=== PATIENT | female | born 1970 | race Caucasian/White ===

== ENCOUNTER → 2024-12-15 | Outpatient (CLI) | payer OTHER ==
[~2024-12-15] MED LIST: HYDHCL25 PO
[2024-12-15 12:06] LABS: Source, Urine Voided
[2024-12-15 13:52] LABS: Bilirubin, Urine Neg (Neg); Color, Urine Yellow (P-Yellow); Glucose Qualitative, Urine Neg (Neg); Ketones, Urine Neg (Neg); Leukocyte Esterase, Urine Neg (Neg); Protein, Urine 2+ (Neg); Specific Gravity, Urine 1.010 (1.003-1.022); Urobilinogen, Urine NORM (Normal)
[2024-12-15 16:13] LABS: Creatinine, Urine Random 35.5 mg/dL (27.00-270.00); Microalb/Creat Ratio UR, Rand 687.324 mg/g (0.000-30.000); Microalbumin, Random Urine 244.0 mg/L (0.000-20.000)
== END ==
LOC: LAB SHORT 10:49 → LAB 10:49
PROVIDERS: Internal Medicine
DX: M32.14 Glomerular disease in systemic lupus erythematosus (principal); I12.9 Hypertensive chronic kidney disease with stage 1 through stage 4 chronic kidney disease, or unspecified chronic kidney disease; N18.31 Chronic kidney disease, stage 3a; D84.9 Immunodeficiency, unspecified
CPT/HCPCS: 81001; 82043; 82570

== ENCOUNTER 2025-01-26 00:35 | Day surgery (SDC) | payer OTHER ==
[~2025-01-26] VITALS: Wt 67.4 kg
[2025-01-26 07:44] VITALS: BP 108/74
[2025-01-26] MEDS ORDERED: AMLO10 PO (07:48)
[2025-01-26] MEDS ORDERED: CARV6.25 PO (07:48)
[2025-01-26] MEDS ORDERED: THERA-D2000 UNIT PO (07:48)
[2025-01-26] MEDS ORDERED: CLOBETASOL EMOL15 G1 TOP (07:49)
[2025-01-26] MEDS ORDERED: HYDSUL200 PO (07:50)
[2025-01-26] MEDS ORDERED: CATAPRES0.2 M1 PO (07:50)
[2025-01-26] MEDS ORDERED: CATAPRES0.1 MG PO (07:50)
[2025-01-26] MEDS ORDERED: MYCO250 PO (07:52)
[2025-01-26] MEDS ORDERED: OLME5TAB PO (07:52)
[2025-01-26] MEDS ORDERED: Prednisone10 M1 PO (07:54)
[2025-01-26] MEDS ORDERED: VENL75ER PO (07:54)
--- NOTE | 2025-01-26 10:46 | NUR ---
PHARMACY ADVISED THAT THEY HAD INSUFFICIENT QUANTITY OF MEDICATION AVAILABLE FOR TODAY'S APPT. PT WAS NOTIFIED, IV REMOVED, AND RESCHEDULED FOR NEXT WEEK. PT EXPRESSES UNDERSTANDING.
== END 2025-01-26 08:18 | disposition home or self-care (01) ==
LOC: ATC 00:35
DX: M32.14 Glomerular disease in systemic lupus erythematosus (principal); I10 Essential (primary) hypertension; D64.9 Anemia, unspecified; Z79.899 Other long term (current) drug therapy

== ENCOUNTER 2025-02-02 00:30 | Day surgery (SDC) | payer OTHER ==
[~2025-02-02] VITALS: Wt 68.0 kg
[~2025-02-02 00:30] MED LIST changes: +AMLO10 PO; +CARV6.25 PO; +CATAPRES0.1 MG PO; +CATAPRES0.2 M1 PO; +CLOBETASOL EMOL15 G1 TOP; +HYDSUL200 PO; +MYCO250 PO; +OLME5TAB PO; +Prednisone10 M1 PO; +THERA-D2000 UNIT PO; +VENL75ER PO
[2025-02-02 07:58] VITALS: BP 111/58
== END 2025-02-02 10:10 | disposition home or self-care (01) ==
LOC: ATC 00:30
DX: M32.14 Glomerular disease in systemic lupus erythematosus (principal); I15.1 Hypertension secondary to other renal disorders
CPT/HCPCS: 96365; J0490; J7050

== ENCOUNTER 2025-02-23 04:29 | Day surgery (SDC) | payer OTHER ==
[~2025-02-23] VITALS: Wt 68.1 kg
[2025-02-23 14:12] VITALS: BP 102/58
[2025-02-23] MEDS ORDERED: TORS10 PO (14:18)
[2025-02-23 14:56] LABS: BASOPHILS ABSOLUTE AUTO 0.02 K/mm3 (0.00-0.23); BASOPHILS PERCENT AUTO 0 % (0-2); EOSINOPHILS ABSOLUTE AUTO 0.03 K/mm3 (0.00-0.68); EOSINOPHILS PERCENT AUTO 0 % (0-6); Hematocrit 30.7 % (33.0-51.0); Hemoglobin 9.9 g/dL (11.5-16.0); IMMATURE GRAN ABSOLUTE AUTO 0.04 K/mm3 (0.00-0.10); IMMATURE GRAN PERCENT AUTO 1 % (0-1); LYMPHOCYTES ABSOLUTE AUTO 0.74 K/mm3 (0.84-5.20); LYMPHOCYTES PERCENT AUTO 9 % (21-46); MONOCYTES ABSOLUTE AUTO 0.51 K/mm3 (0.16-1.47); MONOCYTES PERCENT AUTO 6 % (4-13); Mean Corpuscular HGB Conc 32.2 g/dL (31.5-36.5); Mean Corpuscular Volume 94 fL (80-100); NEUTROPHILS ABSOLUTE AUTO 6.85 K/mm3 (1.96-9.15); NEUTROPHILS PERCENT AUTO 84 % (41-73); NRBC ABSOLUTE 0.00 K/mm3 (0.00-0.02); NRBC Auto 0.0 /100 WBC (0.0-0.2); Platelet Count 332 K/mm3 (150-400); RDW Coefficient Variation 13.6 % (11.7-14.2); RDW Standard Deviation 46.6 fL (35.1-46.3)
[2025-02-23 15:15] LABS: Alanine Aminotransfer (ALT/SGP 23.0 U/L (12-78); Albumin, Blood 3.3 g/dL (3.4-5.0); Albumin/Globulin Ratio 0.9 (0.8-1.8); Anion Gap 11.0 mmol/L (3-11); Aspartate Aminotrans (AST/SGOT 14.0 U/L (12-37); Bilirubin, Total 0.3 mg/dL (0.1-1.0); Blood Urea Nitrogen 44.0 mg/dL (8-24); C-REACTIVE PROTEIN, EXT RANGE 0.892 mg/dL (0.000-0.300); CO2, Blood 24.0 mmol/L (21-32); Calcium, Blood 9.3 mg/dL (8.5-10.1); Chloride, Blood 106.0 mmol/L (98-108); Creatinine, Blood 1.51 mg/dL (0.40-1.00); Globulin, Blood 3.6 g/dL (2.2-4.0); Glucose, Blood 108.0 mg/dL (70-99); Potassium, Blood 3.7 mmol/L (3.5-5.5); Sodium, Blood 137.0 mmol/L (136-145); Total Protein, Blood 6.9 g/dL (6.4-8.2)
--- NOTE | 2025-02-23 17:52 | NUR ---
Lab results from today faxed to Dr. Valdes's office.
== END 2025-02-23 15:57 | disposition home or self-care (01) ==
LOC: ATC 04:29
PROVIDERS: Internal Medicine Rheumatology
DX: M32.14 Glomerular disease in systemic lupus erythematosus (principal)
CPT/HCPCS: 36591; 80053; 85025; 86140; 96413; J0490; J7050

== ENCOUNTER → 2025-02-26 | Outpatient (CLI) | payer OTHER ==
[~2025-02-26] MED LIST changes: +TORS10 PO
== END ==
LOC: LAB 15:38 → LAB SHORT 15:38
PROVIDERS: Student in an Organized Health Care Education/Training Program
DX: Z01.419 Encounter for gynecological examination (general) (routine) without abnormal findings (principal)
CPT/HCPCS: 87624; G0145

== ENCOUNTER 2025-03-13 02:40 | Day surgery (SDC) | payer OTHER ==
[~2025-03-13] VITALS: Wt 69.9 kg
[2025-03-13 13:26] VITALS: BP 120/54
== END 2025-03-13 15:22 | disposition home or self-care (01) ==
LOC: ATC 02:40
DX: M32.14 Glomerular disease in systemic lupus erythematosus (principal); I15.1 Hypertension secondary to other renal disorders
CPT/HCPCS: 96365; J0490; J7050

== ENCOUNTER → 2025-03-17 | Outpatient (CLI) | payer OTHER ==
[2025-03-18 09:10] LABS: Influenza A/2009-H1 Not Detected (NOT DETECT); SARS-Cov-2 (COVID-19), BioFire Not Detected (NOT DETECT)
== END | disposition home or self-care (01) ==
LOC: LAB 10:37 → LAB SHORT 10:37
PROVIDERS: Student in an Organized Health Care Education/Training Program
DX: J06.9 Acute upper respiratory infection, unspecified (principal)
CPT/HCPCS: 0202U